=== PATIENT | female | born 2000 | race African-American/Black ===

== ENCOUNTER 2022-04-26 07:04 | Emergency (ER) | payer BC, OTHER ==
[2022-04-26] MEDS ORDERED: Cephalexin 250 MG CAP ONE (20:44)
[2022-04-26] MEDS ORDERED: Sulfameth/Trimethoprim DS 800-160mg TAB ONE (20:51)
== END 2022-04-26 08:16 | disposition home or self-care (01) ==
LOC: CSHERS 07:04
DX: R07.89 Other chest pain (principal)
CPT/HCPCS: 71045; 93005